=== PATIENT | female | born 1950 | race Caucasian/White ===

== ENCOUNTER 2016-09-16 08:12 | Day surgery (SDC) | payer MEDICARE, OTHER ==
--- NOTE | ~2016-09-16 | OP ---
Record Of Operation [facility] [address] [place]. [address] NAME: MARAL YAP : 48 STATUS : [facility]#: [id number] AGE: 66 ADM/REG DATE : 09/16/16 MR#: [id number] REPORT SERV DATE: 09/16/16 DICTATED BY: DENISE POOLE DATE: 09/16/16 REPORT STATUS : Draft TRANSCRIBED BY: JOHN DATE: 09/16/16 DATE OF PROCEDURE: PREOPERATIVE DIAGNOSES: 1. History of right breast cancer. 2. Indwelling left chest wall port. POSTOPERATIVE DIAGNOSIS: History of right breast cancer. PROCEDURE: Removal of left chest wall venous port. INDICATION FOR THE PROCEDURE: Ms. Yap is a 66-year-old female who had two lesions in the right breast. She was treated for her breast cancer including chemotherapy and is now ready for port removal. OPERATIVE FINDINGS: After appropriate consent was noted on the chart, the patient was taken to the operating room in supine position. Her bilateral chest wall were prepped and draped in sterile fashion. Local anesthetic with 1% lidocaine plain was instilled into the skin and soft tissue overlying the port. The scar was opened with a #15 blade and sharp dissection carried down to the port hub. The port hub was grasped with a hemostat and [place]y utilized to pull the catheter from the vein. My wet process assistant head miller held pressure on the vein for approximately 5 minutes while I continued the port removal. The two stay sutures were removed and the port removed with ease. There was no sign of infection or other issue. Two stay sutures were noted to be removed fully from the tissue. The wound was copiously irrigated with warm saline and hemostasis achieved. The incision was then closed in two layers of Monocryl. The skin was cleansed and dried. Dermabond overlaid. The patient tolerated the procedure well. There was estimated blood loss of 10 mL. No complications and no specimens. The patient was taken to the PACU in stable condition for recovery. FLOYD/JOHN Denise Poole MD / [id number] CC: MD JAYJAY Toth ANDREW [facility] Twan Lance III, M.D.
[~2016-09-16 08:12] MED LIST: ALLEGRA180 PO; ASAB PO; CALTRA600D PO; CHEMOTHERAPY IV; CIP5 PO; COMP10B PO; DEX4 PO; DEXA5B; FENOFIBRATE PO; KLOR-CON M2020 MEQ PO; METAMUCIL CAN7 OZ PO; NITROSTAT0.4 MG SL; NORCO1 TA1 PO; NORV5 PO; PRIN10 PO; PRIN20 PO; TAMOXIFEN20 M1 PO; X5 PO; ZOFRAN8 PO
== END 2016-09-16 12:58 | disposition home or self-care (01) ==
LOC: SDC 08:12
PROVIDERS: Surgery Surgical Oncology
PROC: 0JPTXXZ Removal of Tunneled Vascular Access Device from Trunk Subcutaneous Tissue and Fascia, External Approach (ICD-10-PCS; principal; 2016-09-16 09:15)
DX: Z45.2 Encounter for adjustment and management of vascular access device (principal); I10 Essential (primary) hypertension; Z85.3 Personal history of malignant neoplasm of breast; Z90.710 Acquired absence of both cervix and uterus; Z88.1 Allergy status to other antibiotic agents
CPT/HCPCS: J0690